=== PATIENT | male | born 1990 | race Two or more races ===

== ENCOUNTER 2024-04-27 20:45 | Emergency (ER) | payer MEDICAID ==
[~2024-04-27] VITALS: Ht 172.7 cm; Wt 75.0 kg
[2024-04-27 23:28] VITALS: BP 107/62; PULSE 84; RESP 14; TEMP 98; O2SAT 96
== END 2024-04-27 23:30 | disposition home or self-care (01) ==
LOC: ER 20:45
DX: S01.81XA Laceration without foreign body of other part of head, initial encounter (principal); S01.21XA Laceration without foreign body of nose, initial encounter; S09.8XXA Other specified injuries of head, initial encounter; W18.39XA Other fall on same level, initial encounter; Y93.89 Activity, other specified; Y92.89 Other specified places as the place of occurrence of the external cause; Y99.8 Other external cause status
CPT/HCPCS: 12011; 70450; 70486; 99284

== ENCOUNTER 2024-07-04 21:24 | Emergency (ER) | payer MEDICAID ==
[~2024-07-04] VITALS: Ht 175.3 cm; Wt 58.6 kg
[2024-07-04 21:26] VITALS: BP 113/76; PULSE 111; RESP 20; O2SAT 96
[2024-07-04 21:57] LABS: BASOPHILS % (AUTO) 0.6 % (0-1); EOSINOPHILS % (AUTO) 0.4 % (0-6); HEMATOCRIT 45.5 % (42.0-52.0); HEMOGLOBIN 15.5 g/dl (14.0-17.9); LYMPHOCYTES # (AUTO) 2.8 X10'3 (1.1-4.8); MEAN CORPUSCULAR HEMOGLOBIN 33.5 PG (27.0-31.0); MEAN CORPUSCULAR VOLUME 98.6 FL (78-98); MEAN PLATELET VOLUME 7.1 FL (7.4-10.4); MONOCYTES # (AUTO) 0.7 X10'3 (0-0.9); MONOCYTES % (AUTO) 11.9 % (2-12); NEUTROPHILS # (AUTO) 2.5 X10'3 (1.8-7.7); NEUTROPHILS % (AUTO) 41.1 % (42-75); PLATELET COUNT 204 X10'3 (140-440); RED BLOOD COUNT 4.61 X10'6 (4.70-6.10); RED CELL DISTRIBUTION WIDTH 14.5 % (11.5-14.5); WHITE BLOOD COUNT 6.1 X10'3 (4.5-11.0)
[2024-07-04 22:11] LABS: ALANINE AMINOTRANSFERASE 120 U/L (12-78); ALBUMIN 4.1 G/DL (3.4-5.0); ALKALINE PHOSPHATASE 85 IU/L (46-116); ANION GAP 12 (8-16); ASPARTATE AMINO TRANSFERASE 93 U/L (10-37); BILIRUBIN,TOTAL 0.4 MG/DL (0.1-1.0); BLOOD UREA NITROGEN 7 MG/DL (7-18); BUN/CREATININE RATIO 8.5 (10.0-20.0); CALCIUM 8.8 MG/DL (8.5-10.1); CHLORIDE 105 MMOL/L (99-107); CREATININE 0.82 MG/DL (0.60-1.10); GLUCOSE 97 MG/DL (70-104); POTASSIUM 3.8 MMOL/L (3.5-5.1); SODIUM 141 MMOL/L (135-145); TOTAL CARBON DIOXIDE 23.8 MMOL/L (24-32); TOTAL PROTEIN 8.3 G/DL (6.4-8.2); eCRCL 105 ML/MIN; eGFR > 90 ML/MIN
== END 2024-07-04 23:52 | disposition left against medical advice (07) ==
LOC: ER 21:25
DX: R42 Dizziness and giddiness (principal); Z53.21 Procedure and treatment not carried out due to patient leaving prior to being seen by health care provider
CPT/HCPCS: 36415; 80053; 82140; 82948; 84484; 85025; 93005

== ENCOUNTER 2024-07-08 19:49 | Emergency (ER) | payer MEDICAID ==
[~2024-07-08] VITALS: Ht 175.3 cm; Wt 59.0 kg
[2024-07-08] MEDS ORDERED: AMOX500C2 PO (22:10)
[2024-07-08] MEDS: amoxicillin 250mg capsule PO ONE (22:50)
[2024-07-08 23:39] VITALS: BP 98/59; PULSE 65; RESP 15; TEMP 98.8; O2SAT 97
== END 2024-07-08 23:41 | disposition home or self-care (01) ==
LOC: ER 19:49
DX: M54.2 Cervicalgia (principal); R59.0 Localized enlarged lymph nodes; R07.0 Pain in throat; Z79.2 Long term (current) use of antibiotics
CPT/HCPCS: 99283